=== PATIENT | male | born 1980 | race Caucasian/White ===

== ENCOUNTER 2016-07-05 16:39 | Emergency (ER) | payer OTHER ==
[~2016-07-05] VITALS: Ht 180.3 cm; Wt 70.9 kg
[~2016-07-05 16:39] MED LIST: GOODY'S EX-STR1 EACH PO; IBUPROFEN200 M1 PO; LORTAB 5-500 T1 EACH PO; MOTRIN600 MG PO; NOHOMEMEDS; OXYCODONE HCL5 MG PO; TRAMADOL HCL50 MG PO; TYLENOL EXTRA500 MG PO; ULTRAM50 MG PO; [UNRECOGNIZED DRUG - OTHER] PO
[2016-07-05] MEDS ORDERED: KEFLEX500 MG PO (18:19)
[2016-07-05] MEDS ORDERED: ULTRACET1 TABLET PO (18:19)
[2016-07-05] MEDS ORDERED: MOTRIN800 MG PO (18:19)
[2016-07-05 18:34] VITALS: BP 109/79
== END 2016-07-05 18:35 | disposition home or self-care (01) ==
LOC: EME 16:39
PROC: 0H9RXZZ Drainage of Toe Nail, External Approach (ICD-10-PCS; principal; 2016-07-05)
DX: S90.212A Contusion of left great toe with damage to nail, initial encounter (principal); L03.032 Cellulitis of left toe; W20.8XXA Other cause of strike by thrown, projected or falling object, initial encounter
CPT/HCPCS: 73660; 87070; 87075; 87205; 99281; 99284; S0020